=== PATIENT | male | born 1970 | race Caucasian/White ===

== ENCOUNTER 2018-05-03 07:55 | Emergency (ER) | payer OTHER ==
[~2018-05-03] VITALS: Ht 177.8 cm; Wt 173.3 kg
[~2018-05-03 07:55] MED LIST: TRAM50TA2 PO
[2018-05-03] MEDS ORDERED: KETOROLAC 30 MG/ML VIAL IVP ONE (08:15)
--- NOTE | 2018-05-03 08:19 | ED GU-Male ---
General Chief Complaint: -Male Stated Complaint: TESTICLE PAIN Source: patient, spouse Exam Limitations: no limitations History of Present Illness Date Seen by Provider: May 03, 2018 Time Seen by Provider: 08:04 Initial Comments Patient presents to the ER by private conveyance with his significant other and a chief complaint that at 1:00 this morning he surgeon experience some left general testicular pain like somebody just kicked him in the testicle. He denies any trauma. He says this happens occasionally and usually goes away after little bit to seconds to a minute. However tonight the pain did not go away and is still persisting so he has called in from work and came to the ER to be checked out. He has had a vasectomy but no other surgeries on his abdomen or pelvis. He is not having any discharge painful urination, fevers, chills, discoloration or swelling in the scrotum. He has a history of hiatal hernia but no inguinal hernias. He is having no problems passing bowels. He has a little bit of nausea when the pain is at its worst. Made worse by Valsalva maneuver. Patient is in the process of smoking cessation and does not smoke every day. He has no significant known medical problems says his blood pressure is normal and does not take any medicines routinely. He is being treated with some pain medicine for dental pain presently. Allergies and Home Medications Allergies Coded Allergies: No Known Allergies (Verified Allergy, Unknown, 05/30/06) Home Medications Tramadol Hcl 50 Mg Tablet, 50 MG PO Q4H PRN Prescribed by: MARCIN ROTHMAN on 07/22/13 2215 Patient Home Medication List Home Medication List Reviewed: Yes Review of Systems Constitutional: No chills, No diaphoresis, No fever EENTM: No ear discharge, No ear pain Respiratory: No cough, No short of breath Cardiovascular: No chest pain, No palpitations Gastrointestinal: No abdominal pain, No constipation Genitourinary: denies burning, denies discharge, denies dysuria, denies frequency, denies incontinence Musculoskeletal: No joint swelling, No muscle pain Past Ubvpxgs-Uapswo-Vdailo Hx Patient Social History Alcohol Use: Denies Use Recreational Drug Use: No Smoking Status: Current Someday Smoker Recent Foreign Travel: No Contact w/Someone Who Travel: No Past Medical History Surgeries: Yes Gallbladder, Orthopedic, Vasectomy Respiratory: No Cardiac: No Neurological: No Reproductive Disorders: No Sexually Transmitted Disease: No HIV/AIDS: No Gastrointestinal: No Musculoskeletal: No Endocrine: No Cancer: No Psychosocial: No Integumentary: No Blood Disorders: No Adverse Reaction/Blood Tranf: No Family Medical History No Pertinent Family Hx Physical Exam Vital Signs Vital Signs - First Documented 05/03/18 07:59 Temp 96.0 Pulse 81 Resp 18 B/P (MAP) 117/83 (94) Pulse Ox 98 O2 Delivery Room Air Capillary Refill : Height, Weight, BMI Height: ', " Weight: 310lbs oz, 140.647002pd Method:Stated ,BMI General Appearance: no apparent distress, obese HEENT: PERRL/EOMI, pharynx normal Neck: non-tender, full range of motion, supple, normal inspection Cardiovascular: normal peripheral pulses, regular rate, rhythm Respiratory: no respiratory distress, no accessory muscle use Gastrointestinal: non tender, soft Male: normal genitalia, no hernia; No erythema; inguinal tenderness (left side) ; No testicular tenderness; other (no palpable mass) Genital/Rectal: normal genital exam, other (cremasteric reflex present. No Pineda clap or deformity.) Extremities: normal range of motion, normal capillary refill Neurologic/Psychiatric: alert, oriented x 3 Progress/Results/Core Measures Suspected Sepsis SIRS Temperature: Pulse: Respiratory Rate: Laboratory Tests 05/03/18 08:27: White Blood Count 7.9 Blood Pressure / Mean: Laboratory Tests 05/03/18 08:27: Platelet Count 255 05/03/18 08:51: Creatinine 0.95, Total Bilirubin 0.7 Results/Orders Lab Results Laboratory Tests Test 05/03/18 08:27 05/03/18 08:51 05/03/18 09:44 Range/Units White Blood Count 7.9 4.3-11.0 10^3/uL Red Blood Count 4.48 4.35-5.85 10^6/uL Hemoglobin 14.2 13.3-17.7 G/DL Hematocrit 42 40-54 % Mean Corpuscular Volume 93 80-99 FL Mean Corpuscular Hemoglobin 32 25-34 PG Mean Corpuscular Hemoglobin Concent 34 32-36 G/DL Red Cell Distribution Width 14.4 10.0-14.5 % Platelet Count 255 130-400 10^3/uL Mean Platelet Volume 10.7 H 7.4-10.4 FL Neutrophils (%) (Auto) 65 42-75 % Lymphocytes (%) (Auto) 23 12-44 % Monocytes (%) (Auto) 7 0-12 % Eosinophils (%) (Auto) 5 0-10 % Basophils (%) (Auto) 1 0-10 % Neutrophils # (Auto) 5.1 1.8-7.8 X 10^3 Lymphocytes # (Auto) 1.8 1.0-4.0 X 10^3 Monocytes # (Auto) 0.6 0.0-1.0 X 10^3 Eosinophils # (Auto) 0.4 H 0.0-0.3 10^3/uL Basophils # (Auto) 0.1 0.0-0.1 10^3/uL Sodium Level 138 135-145 MMOL/L Potassium Level 3.9 3.6-5.0 MMOL/L Chloride Level 105 98-107 MMOL/L Carbon Dioxide Level 22 21-32 MMOL/L Anion Gap 11 5-14 MMOL/L Blood Urea Nitrogen 9 7-18 MG/DL Creatinine 0.95 0.60-1.30 MG/DL Estimat Glomerular Filtration Rate > 60 BUN/Creatinine Ratio 9 Glucose Level 99 70-105 MG/DL Calcium Level 9.0 8.5-10.1 MG/DL Total Bilirubin 0.7 0.1-1.0 MG/DL Aspartate Amino Transf (AST/SGOT) 17 5-34 U/L Alanine Aminotransferase (ALT/SGPT) 14 0-55 U/L Alkaline Phosphatase 124 40-136 U/L Total Protein 7.1 6.4-8.2 GM/DL Albumin 3.9 3.2-4.5 GM/DL Urine Color YELLOW Urine Clarity VERY CLOUDY H Urine pH 6 5-9 Urine Specific [place] 1.020 1.016-1.022 Urine Protein 2+ H NEGATIVE Urine Glucose (UA) NEGATIVE NEGATIVE Urine Ketones 1+ H NEGATIVE Urine Nitrite NEGATIVE NEGATIVE Urine Bilirubin NEGATIVE NEGATIVE Urine Urobilinogen 1 NORMAL MG/DL Urine Leukocyte Esterase 1+ H NEGATIVE Urine RBC (Auto) NEGATIVE NEGATIVE Urine RBC NONE /HPF Urine WBC RARE /HPF Urine Squamous Epithelial Cells RARE /HPF Urine Crystals NONE /LPF Urine Bacteria NEGATIVE /HPF Urine Casts NONE /LPF Urine Mucus NEGATIVE /LPF Urine Culture Indicated NO My Orders Orders - SUKI GALLAGHER Cbc With Automated Diff (05/03/18 08:07) Comprehensive Metabolic Panel (05/03/18 08:07) Ua Culture If Indicated (05/03/18 08:07) Saline Lock/Iv-Start (05/03/18 08:07) Us Scrotum (Testicle) [id number] (05/03/18 08:07) Ketorolac Injection (Toradol Injection) (05/03/18 08:15) Ondansetron Injection (Zofran Injectio (05/03/18 08:30) Medications Given in ED Current Medications Medications Dose Ordered Sig/Meggan Route Start Time Stop Time Status Last Admin Dose Admin Ketorolac Tromethamine 30 mg ONCE ONCE IVP 05/03/18 08:15 05/03/18 08:16 DC 05/03/18 08:34 30 MG Ondansetron HCl 4 mg ONCE ONCE IVP 05/03/18 08:30 05/03/18 08:31 DC 05/03/18 08:33 4 MG Vital Signs/I&O 05/03/18 07:59 Temp 96.0 Pulse 81 Resp 18 B/P (MAP) 117/83 (94) Pulse Ox 98 O2 Delivery Room Air Capillary Refill : Progress Note : Time: 08:14 Progress Note We will start an IV and give him some Zofran and ketorolac to start; then obtain an ultrasound of the scrotum. Urinalysis. Concern for testicle torsion versus inguinal hernia that couldn't be palpated versus epididymo orchitis. Diagnostic Imaging Diagonstic Imaging: Ultrasound Plain Films/CT/US/NM/MRI: other (scrotum) Comments Slight fullness in the left epididymis but no evidence of torsion. Good blood flow to the testicles. No cysts or tumor seen. [facility] [place], [place] NAME: NEVILLE RIVERS [facility] REC#: [id number] PT STATUS: REG ER : 1970 PHYSICIAN: SKUI GALLAGHER MD ADMIT DATE: 05/03/18/ER Draft Date of Exam:05/03/18 US SCROTUM (Testicle) [id number] INDICATION: Left scrotal pain EXAMINATION: Scrotal sonogram dated 05/03/2018 FINDINGS: Grayscale and color Doppler ultrasound imaging of the scrotum. Right testicle is 5.2 x 2.7 x 3.6 cm. The left measures 4.7 x 3 x 3.2 cm. Bilateral symmetric blood flow seen to the testes. Small bilateral hydroceles noted. The left epididymis is more prominent than the right but no increased vascularity is seen. IMPRESSION: 1. Slightly prominent left epididymis compared to the right. Findings nonspecific but could be due to very early epididymitis; correlate with symptoms. 2. Small bilateral hydroceles. 3. Normal appearance of both testes with no evidence for torsion. Dictated on workstation # [id number] Dict: 05/03/18 0931 Trans: 05/03/18 0948 BETTYE [id number] Interpreted by: JOVANNI MORAN MD Electronically signed by: Reviewed: Reviewed by Me Departure Impression Primary Impression: Epididymo-orchitis, acute Disposition: 01 HOME, SELF-CARE Condition: Stable Departure-Patient Inst. Decision time for Depature: 10:12 Referrals: NO,LOCAL PHYSICIAN (PCP/Family) Primary Care Physician Patient Instructions: Epididymitis (DC) Add. Discharge Instructions: Drink plenty of fluids. operations support manager the Levaquin from the pharmacy and take one tablet daily for the total of 10 days. Use Tylenol 1000 mg every 8 hours in addition to ibuprofen 800 mg every 8 hours for your pain. All discharge instructions reviewed with patient and/or family. Voiced understanding. Scripts Ondansetron (Ondansetron Odt) 4 Mg Tab.rapdis 4 MG PO Q6H PRN for NAUSEA/VOMITING, #8 TAB 0 Refills Prov: SUKI GALLAGHER 05/03/18 Hydrocodone Bit/Acetaminophen (Hydrocodone/Acetaminophen 5/325mg Tablet) 1 Tab Tab 1-2 EACH PO Q6H PRN for BREAKTHROUGH PAIN, #15 TAB 0 Refills Prov: SUKI GALLAGHER 05/03/18 Levofloxacin (Levaquin) 500 Mg Tablet 500 MG PO DAILY for 10 Days, #10 TAB 0 Refills Prov: SUKI GALLAGHER 05/03/18 Work/School Note: Work Release Form Date Seen in the Emergency Department: May 03, 2018 Return to Work: May 04, 2018 Restrictions: No Restrictions SUKI GALLAGHER May 03, 2018 08:19
[2018-05-03] MEDS ORDERED: ONDANSETRON 4 MG/2 ML (SDV) Z0FRAN IVP ONE ×2 (08:30→10:30)
[2018-05-03 08:39] LABS: BASOPHILS # (AUTO) 0.1 10^3/uL (0.0-0.1); BASOPHILS % (AUTO) 1 % (0-10); EOSINOPHILS # (AUTO) 0.4 10^3/uL (0.0-0.3); EOSINOPHILS % (AUTO) 5 % (0-10); HEMATOCRIT 42 % (40-54); HEMOGLOBIN 14.2 G/DL (13.3-17.7); LYMPHOCYTES # (AUTO) 1.8 X 10^3 (1.0-4.0); LYMPHOCYTES % (AUTO) 23 % (12-44); MEAN CORPUSCULAR HEMOGLOBIN 32 PG (25-34); MEAN CORPUSCULAR HGB CONC 34 G/DL (32-36); MEAN CORPUSCULAR VOLUME 93 FL (80-99); MEAN PLATELET VOLUME 10.7 FL (7.4-10.4); MONOCYTES # (AUTO) 0.6 X 10^3 (0.0-1.0); MONOCYTES % (AUTO) 7 % (0-12); NEUTROPHILS # (AUTO) 5.1 X 10^3 (1.8-7.8); NEUTROPHILS % (AUTO) 65 % (42-75); PLATELET COUNT 255 10^3/uL (130-400); RED BLOOD COUNT 4.48 10^6/uL (4.35-5.85); RED CELL DISTRIBUTION WIDTH 14.4 % (10.0-14.5); WHITE BLOOD COUNT 7.9 10^3/uL (4.3-11.0)
[2018-05-03 09:18] LABS: ALANINE AMINOTRANSFERASE 14 U/L (0-55); ALBUMIN 3.9 GM/DL (3.2-4.5); ALKALINE PHOSPHATASE 124 U/L (40-136); BILIRUBIN,TOTAL 0.7 MG/DL (0.1-1.0); BUN/CREATININE RATIO 9; CARBON DIOXIDE 22 MMOL/L (21-32); CHLORIDE 105 MMOL/L (98-107); CREATININE SERUM 0.95 MG/DL (0.60-1.30); GFR ESTIMATED > 60; GLUCOSE 99 MG/DL (70-105); POTASSIUM 3.9 MMOL/L (3.6-5.0); SODIUM 138 MMOL/L (135-145); TOTAL PROTEIN 7.1 GM/DL (6.4-8.2)
--- NOTE | 2018-05-03 09:49 | Diagnostic Imaging Report ---
INDICATION: Left scrotal pain EXAMINATION: Scrotal sonogram dated 05/03/2018 FINDINGS: Grayscale and color Doppler ultrasound imaging of the scrotum. Right testicle is 5.2 x 2.7 x 3.6 cm. The left measures 4.7 x 3 x 3.2 cm. Bilateral symmetric blood flow seen to the testes. Small bilateral hydroceles noted. The left epididymis is more prominent than the right but no increased vascularity is seen. IMPRESSION: 1. Slightly prominent left epididymis compared to the right. Findings nonspecific but could be due to very early epididymitis; correlate with symptoms. 2. Small bilateral hydroceles. 3. Normal appearance of both testes with no evidence for torsion. Dictated by: Dictated on workstation # [id number]
[2018-05-03 09:55] LABS: BILIRUBIN,URINE NEGATIVE (NEGATIVE); CLARITY,URINE VERY CLOUDY; COLOR,URINE YELLOW; GLUCOSE, URINE (UA) NEGATIVE (NEGATIVE); KETONES,URINE 1+ (NEGATIVE); LEUKOCYTE ESTERASE ,URINE 1+ (NEGATIVE); NITRITE,URINE NEGATIVE (NEGATIVE); PH,URINE 6 (5-9); PROTEIN,URINE 2+ (NEGATIVE); UROBILINOGEN,URINE 1 MG/DL (NORMAL)
[2018-05-03 10:06] LABS: BACTERIA,URINE NEGATIVE /HPF; SQUAMOUS EPITHELIAL CELL,UR RARE /HPF; WBC,URINE RARE /HPF
[2018-05-03] MEDS ORDERED: ACHD5005 PO (10:17)
[2018-05-03] MEDS ORDERED: ONDA4TAB11 PO (10:17)
[2018-05-03] MEDS ORDERED: LEVO500T2 PO (10:17)
[2018-05-03 10:27] VITALS: BP 150/100
== END 2018-05-03 10:34 | disposition home or self-care (01) ==
LOC: EDUNIT# 07:55 → ER 07:58
DX: N45.3 Epididymo-orchitis (principal); F17.200 Nicotine dependence, unspecified, uncomplicated; Z98.52 Vasectomy status
CPT/HCPCS: 36415; 76870; 80053; 81000; 85025; 87491; 87591; 96374; 96375; 96376

== ENCOUNTER → 2020-06-28 | Emergency (ER) | payer OTHER ==
[~2020-06-28] VITALS: Ht 177 cm; Wt 177.0 kg
[~2020-06-28] MED LIST changes: +ACHD5005 PO; +LEVO500T2 PO; +ONDA4TAB11 PO
[2020-06-28 12:05] LABS: BILIRUBIN,URINE NEGATIVE (NEGATIVE); CLARITY,URINE CLEAR; COLOR,URINE YELLOW; GLUCOSE, URINE (UA) NEGATIVE (NEGATIVE); KETONES,URINE NEGATIVE (NEGATIVE); LEUKOCYTE ESTERASE ,URINE NEGATIVE (NEGATIVE); NITRITE,URINE NEGATIVE (NEGATIVE); PROTEIN,URINE NEGATIVE (NEGATIVE)
[2020-06-28 12:20] LABS: BACTERIA,URINE NEGATIVE /HPF; SQUAMOUS EPITHELIAL CELL,UR RARE /HPF; WBC,URINE RARE /HPF
--- NOTE | 2020-06-28 12:51 | Diagnostic Imaging Report ---
INDICATION: Back pain. No history of trauma. FINDINGS: Two views. Lumbosacral spine shows good alignment. Body height is well-maintained. Disc spaces are well-preserved. Mild hypertrophic lipping of the endplates noted. Facets show good alignment with moderate degenerative facet disease. SI joints are symmetric with mild sclerosis. Pedicles appear intact. IMPRESSION: Moderate degenerative changes noted to lower lumbosacral spine especially along the facets. Dictated by: Dictated on workstation # [id number]
[2020-06-28 13:00] VITALS: BP 124/90
--- NOTE | 2020-06-28 13:00 | ED Back Pain ---
General Chief Complaint: Back Problems Stated Complaint: LOWER BACK PAIN Nursing Triage Note: pt presents to ed with complaints of lower back pain x 2 weeks. denies any known injury or urinary s/s. pt reports pain has been intermittent and worse with activity. Nursing Sepsis Screen: No Definite Risk History of Present Illness Date Seen by Provider: Jun 28, 2020 Time Seen by Provider: 11:50 Initial Comments 49-year-old obese male presents for low back pain and some present for approximately 2 weeks. No pain radiating into the legs, no bowel or bladder incontinence or retention. Has not been taking medication regularly for the pain, he did take Aleve 4 tablets this morning. No history of previous back problems or surgeries. Location: Lumbar Spine, Paraspinous Muscles Timing/Duration: 1 Week, Intermittent Severity: Mild Pain/Injury Location: Back Associated Symptoms: muscle spasms; No fever, No weakness, No numbness in legs/feet, No tingling in legs/feet, No sensory/motor loss; lower back pain; No loss of bladder control, No loss of bowel control Allergies and Home Medications Allergies Coded Allergies: No Known Allergies (Verified Allergy, Unknown, 05/30/06) Home Medications Hydrocodone Bit/Acetaminophen 1 Tab Tab, 1-2 EACH PO Q6H PRN for BREAKTHROUGH PAIN Prescribed by: SUKI GALLAGHER on 05/03/18 1017 Levofloxacin 500 Mg Tablet, 500 MG PO DAILY Prescribed by: SUKI GALLAGHER on 05/03/18 1017 Ondansetron 4 Mg Tab.rapdis, 4 MG PO Q6H PRN for NAUSEA/VOMITING Prescribed by: SUKI GALLAGHER on 05/03/18 1017 Tramadol Hcl 50 Mg Tablet, 50 MG PO Q4H PRN Prescribed by: MARCIN ROTHMAN on 07/22/13 2213 Patient Home Medication List Home Medication List Reviewed: Yes Review of Systems Constitutional: no symptoms reported, see HPI Musculoskeletal: see HPI, back pain, muscle pain, muscle cramps All Other Systems Reviewed Negative Unless Noted: Yes Past Aulxute-Hasjsh-Cbxvyg Hx Past Med/Social Hx: Reviewed Nursing Past Med/Soc Hx Patient Social History Alcohol Use: Rarely Uses Recreational Drug Use: No Smoking Status: Current Everyday Smoker Type Used: Cigarettes Recent Foreign Travel: No Contact w/Someone Who Travel: No Recent Infectious Disease Expo: No Physical Abuse: No Sexual Abuse: No Mistreated: No Fear: No Past Medical History Surgeries: Yes Gallbladder, Orthopedic, Vasectomy Respiratory: No Cardiac: No Neurological: No Reproductive Disorders: No Sexually Transmitted Disease: No HIV/AIDS: No Gastrointestinal: No Musculoskeletal: No Endocrine: No Cancer: No Psychosocial: No Integumentary: No Blood Disorders: No Adverse Reaction/Blood Tranf: No Family Medical History No Pertinent Family Hx Physical Exam Vital Signs Vital Signs - First Documented 06/28/20 11:49 Temp 36.5 Pulse 98 Resp 18 B/P (MAP) 125/84 (98) Pulse Ox 97 Capillary Refill : Less Than 3 Seconds Height, Weight, BMI Height: 5'10.00" Weight: 382lbs. oz. 173.178927xg; 56.00 BMI Method:Stated General Appearance: No Apparent Distress, WD/WN Neck: Full Range of Motion, Normal Inspection, Non Tender, Supple Cardiovascular: Regular Rate, Rhythm, No Edema, No Murmur, Normal Peripheral Pulses Respiratory: Chest Non Tender, Lungs Clear, Normal Breath Sounds Back: Normal Inspection, Decreased Range of Motion (secondary to pain), Muscle Spasm, Other (Power V/V L4-S1. Ambulates with an antalgic but steady gait) Neurologic/Psychiatric: Alert, Oriented x3, No Motor/Sensory Deficits, Normal Mood/Affect Skin: Normal Color, Warm/Dry Progress/Results/Core Measures Results/Orders Lab Results Laboratory Tests Test 06/28/20 11:42 Range/Units Urine Color YELLOW Urine Clarity CLEAR Urine pH 6.0 5-9 Urine Specific [place] <=1.005 1.016-1.022 Urine Protein NEGATIVE NEGATIVE Urine Glucose (UA) NEGATIVE NEGATIVE Urine Ketones NEGATIVE NEGATIVE Urine Nitrite NEGATIVE NEGATIVE Urine Bilirubin NEGATIVE NEGATIVE Urine Urobilinogen 0.2 < = 1.0 MG/DL Urine Leukocyte Esterase NEGATIVE NEGATIVE Urine RBC (Auto) NEGATIVE NEGATIVE Urine RBC NONE /HPF Urine WBC RARE /HPF Urine Squamous Epithelial Cells RARE /HPF Urine Crystals NONE /LPF Urine Bacteria NEGATIVE /HPF Urine Casts NONE /LPF Urine Mucus NEGATIVE /LPF Urine Culture Indicated NO My Orders Orders - JANEY JOHN Ua Culture If Indicated (06/28/20 11:35) Lumbar Spine - 2-3 Views (06/28/20 12:06) Tramadol Tablet (Ultram Tablet) (06/28/20 12:15) Medications Given in ED Current Medications Medications Dose Ordered Sig/Meggan Route Start Time Stop Time Status Last Admin Dose Admin Tramadol HCl 50 mg ONCE ONCE PO 06/28/20 12:15 06/28/20 12:16 DC 06/28/20 12:40 50 MG Vital Signs/I&O 06/28/20 06/28/20 11:49 13:00 Temp 36.5 Pulse 98 70 Resp 18 20 B/P (MAP) 125/84 (98) 124/90 Pulse Ox 97 98 Blood Pressure Mean: 98 Diagnostic Imaging Diagonstic Imaging: Xray Plain Films/CT/US/NM/MRI: other (lumbar spine) Comments NAME: NEVILLE RIVERS [facility] REC#: [id number] PT STATUS: REG ER : 1970 PHYSICIAN: JANEY JOHN ADMIT DATE: 06/28/20/ER Draft Date of Exam:06/28/20 LUMBAR SPINE - 2-3 VIEWS INDICATION: Back pain. No history of trauma. FINDINGS: Two views. Lumbosacral spine shows good alignment. Body height is well-maintained. Disc spaces are well-preserved. Mild hypertrophic lipping of the endplates noted. Facets show good alignment with moderate degenerative facet disease. SI joints are symmetric with mild sclerosis. Pedicles appear intact. IMPRESSION: Moderate degenerative changes noted to lower lumbosacral spine especially along the facets. Dictated on workstation # [id number] Dict: 06/28/20 1246 Trans: 06/28/[address] [facility] [id number] Interpreted by: SAPPHIRE AGEE MD Electronically signed by: Reviewed: Reviewed by Me Departure Impression Primary Impression: Lumbosacral strain Qualified Codes: S39.012A - Strain of muscle, fascia and tendon of lower back, initial encounter Additional Impression: Acute low back pain Qualified Codes: M54.5 - Low back pain Disposition: 01 HOME, SELF-CARE Condition: Improved Departure-Patient Inst. Decision time for Depature: 12:40 Referrals: NO,LOCAL PHYSICIAN (PCP/Family) Primary Care Physician Patient Instructions: Lumbar Muscle Strain (DC), Low Back Pain (DC) Add. Discharge Instructions: Alternate between heat and ice to your low back. Take Aleve 2 tablets twice daily with food. [facility] are not improving or worsen, an MRI may be recommended at that point. You may try Biofreeze or icy hot to your back. Limit twisting and turning activities or any heavy lifting. Return to the emergency department for new, urgent health care needs. All discharge instructions reviewed with patient and/or family. Voiced understanding. JANEY JOHN Jun 28, 2020 13:00
== END ==
LOC: EDUNIT# 11:32 → ER 11:33
DX: S39.012A Strain of muscle, fascia and tendon of lower back, initial encounter (principal); E66.9 Obesity, unspecified; F17.210 Nicotine dependence, cigarettes, uncomplicated; Z68.43 Body mass index [BMI] 50.0-59.9, adult; X58.XXXA Exposure to other specified factors, initial encounter
CPT/HCPCS: 72100; 81000

== ENCOUNTER 2022-03-18 12:15 | Emergency (ER) | payer OTHER ==
[~2022-03-18] VITALS: Ht 177 cm; Wt 172.3 kg
[2022-03-18 12:49] LABS: BASOPHILS # (AUTO) 0.1 10^3/uL (0.0-0.1); BASOPHILS % (AUTO) 1 % (0-10); EOSINOPHILS # (AUTO) 0.3 10^3/uL (0.0-0.3); EOSINOPHILS % (AUTO) 3 % (0-10); HEMATOCRIT 47 % (40-54); HEMOGLOBIN 15.6 g/dL (13.3-17.7); LYMPHOCYTES # (AUTO) 1.9 10^3/uL (1.0-4.0); LYMPHOCYTES % (AUTO) 21 % (12-44); MEAN CORPUSCULAR HEMOGLOBIN 31 pg (25-34); MEAN CORPUSCULAR HGB CONC 33 g/dL (32-36); MEAN CORPUSCULAR VOLUME 93 fL (80-99); MEAN PLATELET VOLUME 10.5 fL (9.0-12.2); MONOCYTES # (AUTO) 0.6 10^3/uL (0.0-1.0); MONOCYTES % (AUTO) 6 % (0-12); NEUTROPHILS # (AUTO) 6.3 10^3/uL (1.8-7.8); NEUTROPHILS % (AUTO) 69 % (42-75); PLATELET COUNT 277 10^3/uL (130-400); WHITE BLOOD COUNT 9.1 10^3/uL (4.3-11.0)
--- NOTE | 2022-03-18 12:53 | Diagnostic Imaging Report ---
INDICATION: Altered mental status. Portable chest 12:51 PM Heart size and pulmonary vascularity are normal. Lungs are clear. There are no effusions or pneumothoraces. IMPRESSION: No acute abnormalities in the chest. Dictated by: Dictated on workstation # [id number]
[2022-03-18 12:56] LABS: CHLORIDE 104 MMOL/L (98-107); POTASSIUM 4.7 MMOL/L (3.6-5.0); SODIUM 138 MMOL/L (135-145)
[2022-03-18 12:57] LABS: CALCIUM 9.5 MG/DL (8.5-10.1); FIBRIN DEGRADATION PRODUCTS 0.4 UG/ML (0.00-0.49); PROTHROMBIN TIME PATIENT 13.1 SEC (12.2-14.7)
[2022-03-18 12:58] LABS: GLUCOSE 99 MG/DL (70-105); TOTAL PROTEIN 7.4 GM/DL (6.4-8.2)
[2022-03-18 12:59] LABS: CARBON DIOXIDE 21 MMOL/L (21-32)
[2022-03-18 13:00] LABS: BILIRUBIN,TOTAL 0.6 MG/DL (0.1-1.0)
[2022-03-18 13:01] LABS: ALKALINE PHOSPHATASE 117 U/L (40-136)
[2022-03-18 13:02] LABS: CREATININE SERUM 1.17 MG/DL (0.60-1.30); GFR ESTIMATED 75
[2022-03-18 13:03] LABS: BUN/CREATININE RATIO 14
--- NOTE | 2022-03-18 13:03 | Diagnostic Imaging Report ---
INDICATION: Headache and dizziness and tingling in hands. TECHNIQUE: Multiple contiguous axial images were obtained through the brain without the use of intravenous contrast. Auto Exposure Controls were utilized during the CT exam to meet ALARA standards for radiation dose reduction. COMPARISON: There is no prior study for comparison. FINDINGS: There are no extra-axial fluid collections. No intracranial hemorrhage. No intracranial mass or mass effect. No midline shift. The ventricles are normal in size and position. There were no focal parenchymal abnormalities in the brain. Calvarial windows are unremarkable. IMPRESSION: Negative noncontrast brain CT. Dictated by: Dictated on workstation # [id number]
[2022-03-18 13:05] LABS: ALANINE AMINOTRANSFERASE 15 U/L (0-55)
[2022-03-18 13:20] LABS: BILIRUBIN,URINE NEGATIVE (NEGATIVE); CLARITY,URINE CLEAR; COLOR,URINE YELLOW; GLUCOSE, URINE (UA) NEGATIVE (NEGATIVE); KETONES,URINE NEGATIVE (NEGATIVE); LEUKOCYTE ESTERASE ,URINE NEGATIVE (NEGATIVE); NITRITE,URINE NEGATIVE (NEGATIVE); PROTEIN,URINE NEGATIVE (NEGATIVE)
[2022-03-18] MEDS ORDERED: CATHETER FLUSH 10 ML SYR IV PRN (13:30)
[2022-03-18] MEDS ORDERED: NS 100 ML (IVPB) BAG IV ONE (13:30)
[2022-03-18] MEDS ORDERED: HOLD METFORMIN - RECEIVED CONTRAST 20 ML VIAL IV SCH (13:30)
[2022-03-18] MEDS ORDERED: IOHEXOL 350 MG/ML 100 ML (OMNIPAQUE 350) VIAL IV ONE (13:30)
[2022-03-18 13:46] LABS: BACTERIA,URINE NEGATIVE /HPF; SQUAMOUS EPITHELIAL CELL,UR RARE /HPF
--- NOTE | 2022-03-18 14:21 | ED Neurological Problem ---
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 Source: patient Exam Limitations: no limitations History of Present Illness Date Seen by Provider: March 18, 2022 Allergies and Home Medications Allergies Coded Allergies: NKANo Known Allergies (Verified Allergy, Unknown, 05/30/06) Patient Home Medication List Hydrocodone Bit/Acetaminophen (Lortab 5 Mg Tablet) 1 Tab Tab, 1-2 EACH PO Q6H PRN for BREAKTHROUGH PAIN Prescribed by: SUKI GALLAGHER on 05/03/18 1017 Levofloxacin (Levaquin) 500 Mg Tablet, 500 MG PO DAILY Prescribed by: SUKI GALLAGHER on 05/03/18 1017 Ondansetron (Ondansetron Odt) 4 Mg Tab.rapdis, 4 MG PO Q6H PRN for NAUSEA/VOMITING Prescribed by: SUKI GALLAGHER on 05/03/18 1017 Tramadol Hcl (Tramadol Hcl) 50 Mg Tablet, 50 MG PO Q4H PRN Prescribed by: MARCIN ROTHMAN on 07/22/13 1795 Past Qarioyg-Uiznsg-Cacmot Hx Patient Social History Tobacco Use?: Yes Smoking Status: Current Everyday Smoker Substance use?: No Alcohol Use?: No Pt feels they are or have been: No Immunizations Up To Date First/Initial COVID19 Vaccinat: 10/15/21 Second COVID19 Vaccination Joey: 11/05/21 COVID19 Vaccine 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: Healthy Humans Past Medical History Surgeries: Yes Gallbladder, Orthopedic, Vasectomy Respiratory: No Cardiac: No Neurological: No Reproductive Disorders: No Sexually Transmitted Disease: No HIV/AIDS: No Gastrointestinal: No Musculoskeletal: No Endocrine: No Cancer: No Psychosocial: No Integumentary: No Blood Disorders: No Adverse Reaction/Blood Tranf: No Family Medical History No Pertinent Family Hx Physical Exam Vital Signs Vital Signs - First Documented 03/18/22 12:18 Temp 35.7 Pulse 74 Resp 20 B/P (MAP) 127/95 (106) Pulse Ox 98 Capillary Refill : Less Than 3 Seconds Height, Weight, BMI Height: 5'10.00" Weight: 382lbs. oz. [id number]; 54.00 BMI Method:Stated Stroke Onset of Symptoms Date of Onset of Symptoms: March 18, 2022 Time of Symptom Onset: 10:30 Onset of Symptoms: Yes NIH Stroke Scale Assessment Select: Initial Level of Consciousness: 0=Alert (0), Level of Consciousness- Questions: 0=Answers both month/age (0), LOC Commands: 0=Performs both tasks (0), Visual Hernandez: 1=Partial hemianopia (1), Facial Movement (Facial Paresis): 0=Normal symmetrical mnt (0), Motor Function-Arms Right: 0=No drift (0), Motor Function-Arms Left: 0=No drift (0), Motor Function-Legs Right: 0=No drift (0), Motor Function-Legs Left: 0=No drift (0), Limb Ataxia: 0=Absent (0), Sensory: 0=Normal:no loss (0), Best Language: 1=Mild to moderat aphasia (1), Dysarthria: 0=Normal (0), Extinction & Inattention: 0=No abnormality (0), Total: 2 Progress/Results/Core Measures Results/Orders Lab Results Laboratory Tests Test 03/18/22 12:24 03/18/22 12:46 03/18/22 13:14 Range/Units White Blood Count 9.1 4.3-11.0 10^3/uL Red Blood Count 5.06 4.30-5.52 10^6/uL Hemoglobin 15.6 13.3-17.7 g/dL Hematocrit 47 40-54 % Mean Corpuscular Volume 93 80-99 fL Mean Corpuscular Hemoglobin 31 25-34 pg Mean Corpuscular Hemoglobin Concent 33 32-36 g/dL Red Cell Distribution Width 13.6 10.0-14.5 % Platelet Count 277 130-400 10^3/uL Mean Platelet Volume 10.5 9.0-12.2 fL Immature Granulocyte % (Auto) 0 % Neutrophils (%) (Auto) 69 42-75 % Lymphocytes (%) (Auto) 21 12-44 % Monocytes (%) (Auto) 6 0-12 % Eosinophils (%) (Auto) 3 0-10 % Basophils (%) (Auto) 1 0-10 % Neutrophils # (Auto) 6.3 1.8-7.8 10^3/uL Lymphocytes # (Auto) 1.9 1.0-4.0 10^3/uL Monocytes # (Auto) 0.6 0.0-1.0 10^3/uL Eosinophils # (Auto) 0.3 0.0-0.3 10^3/uL Basophils # (Auto) 0.1 0.0-0.1 10^3/uL Immature Granulocyte # (Auto) 0.0 0.0-0.1 10^3/uL Erythrocyte Sedimentation Rate 15 0-30 MM/HR Prothrombin Time 13.1 12.2-14.7 SEC INR Comment 1.0 0.8-1.4 Activated Partial Thromboplast Time 32 24-35 SEC D-Dimer 0.40 0.00-0.49 UG/ML Sodium Level 138 135-145 MMOL/L Potassium Level 4.7 3.6-5.0 MMOL/L Chloride Level 104 98-107 MMOL/L Carbon Dioxide Level 21 21-32 MMOL/L Anion Gap 13 5-14 MMOL/L Blood Urea Nitrogen 16 7-18 MG/DL Creatinine 1.17 0.60-1.30 MG/DL Estimat Glomerular Filtration Rate 75 BUN/Creatinine Ratio 14 Glucose Level 99 70-105 MG/DL Calcium Level 9.5 8.5-10.1 MG/DL Corrected Calcium 9.5 8.5-10.1 MG/DL Total Bilirubin 0.6 0.1-1.0 MG/DL Aspartate Amino Transf (AST/SGOT) 16 5-34 U/L Alanine Aminotransferase (ALT/SGPT) 15 0-55 U/L Alkaline Phosphatase 117 40-136 U/L Troponin I < 0.028 <0.028 NG/ML C-Reactive Protein High Sensitivity 2.10 H 0.00-0.50 MG/DL Total Protein 7.4 6.4-8.2 GM/DL Albumin 4.0 3.2-4.5 GM/DL Glucometer 110 70-110 MG/DL Urine Color YELLOW Urine Clarity CLEAR Urine pH 6.0 5-9 Urine Specific [place] 1.015 L 1.016-1.022 Urine Protein NEGATIVE NEGATIVE Urine Glucose (UA) NEGATIVE NEGATIVE Urine Ketones NEGATIVE NEGATIVE Urine Nitrite NEGATIVE NEGATIVE Urine Bilirubin NEGATIVE NEGATIVE Urine Urobilinogen 0.2 < = 1.0 MG/DL Urine Leukocyte Esterase NEGATIVE NEGATIVE Urine RBC (Auto) NEGATIVE NEGATIVE Urine RBC NONE /HPF Urine WBC NONE /HPF Urine Squamous Epithelial Cells RARE /HPF Urine Crystals NONE /LPF Urine Bacteria NEGATIVE /HPF Urine Casts NONE /LPF Urine Mucus NEGATIVE /LPF Urine Culture Indicated NO My Orders Orders - CECILLE DEY APRN Cbc With Automated Diff (03/18/22 12:44) Protime With Inr (03/18/22 12:44) Partial Thromboplastin Time (03/18/22 12:44) Comprehensive Metabolic Panel (03/18/22 12:44) Fibrin Degradation Products (03/18/22 12:44) Troponin I [place] (03/18/22 12:44) Ua Culture If Indicated (03/18/22 12:44) Chest 1 View, Ap/Pa Only (03/18/22 12:44) Ekg Tracing (03/18/22 12:44) Nothing By Mouth (03/18/22 Lunch) Accucheck Stat ONCE (03/18/22 12:44) Ed Iv/Invasive Line Start (03/18/22 12:44) Vital Signs Stroke Patient Q15M (03/18/22 12:44) Ct Head Wo-R/O Stroke (03/18/22 12:44) O2 (03/18/22 12:44) Intake & Output 06,14,22 (03/18/22 12:44) Monitor-Rhythm Ecg Trace Only (03/18/22 12:44) Dysphagia Screening Tool Q10MX1 (03/18/22 12:44) Post Thrombolytic Adminstratio (03/18/22 12:44) Lipid Panel (03/19/22 06:00) Hs C Reactive Protein (03/18/22 13:20) Erythrocyte Sedimentation Rate (03/18/22 13:20) Ct Angio Head/Neck (03/18/22 13:20) Accucheck Stat ONCE (03/18/22 13:22) Ed Iv/Invasive Line Start (03/18/22 13:22) Ed Iv/Invasive Line Start (03/18/22 13:22) Vital Signs Stroke Patient Q15M (03/18/22 13:22) O2 (03/18/22 13:22) Intake & Output 06,14,22 (03/18/22 13:22) Dysphagia Screening Tool Q10MX1 (03/18/22 13:22) Post Thrombolytic Adminstratio (03/18/22 13:22) Iohexol Injection (Omnipaque 350 Mg/Ml 1 (03/18/22 13:30) Received Contrast (Hold Metformin- Contr (03/18/22 13:30) Sodium Chloride Flush (Catheter Flush Sy (03/18/22 13:30) Ns (Ivpb) (Sodium Chloride 0.9% Ivpb Bag (03/18/22 13:30) Aspirin Tablet (Aspirin Tablet) (03/18/22 15:15) Tetracaine 0.5% Ophth Rosanne Sdv (Tetracai (03/18/22 15:30) Medications Given in ED Current Medications Medications Dose Ordered Sig/Meggan Route Start Time Stop Time Status Last Admin Dose Admin Aspirin 325 mg ONCE ONCE PO 03/18/22 15:15 03/18/22 15:21 DC 03/18/22 15:30 325 MG Iohexol 75 ml ONCE ONCE IV 03/18/22 13:30 03/18/22 13:31 DC 03/18/22 13:40 75 ML Sodium Chloride 10 ml NEEDED PRN IV 03/18/22 13:30 03/18/22 13:40 10 ML Sodium Chloride 100 ml ONCE ONCE IV 03/18/22 13:30 03/18/22 13:31 DC 03/18/22 13:40 80 ML Tetracaine HCl 1 OR 2 DROPS INTO AFFEC... ONCE ONCE OP 03/18/22 15:30 03/18/22 15:31 DC 03/18/22 15:31 4 ML Vital Signs/I&O 03/18/22 12:18 Temp 35.7 Pulse 74 Resp 20 B/P (MAP) 127/95 (106) Pulse Ox 98 Blood Pressure Mean: 106 FSBG Bedside Testing Finger Stick Blood Glucose: 110 Departure Impression Primary Impression: TIA (transient ischemic attack) Disposition: HOME, SELF-CARE Condition: Improved Departure-Patient Inst. Decision time for Depature: 15:22 Referrals: NO,LOCAL PHYSICIAN (PCP/Family) Primary Care Physician Patient Instructions: Transient Ischemic Attack ED Add. Discharge Instructions: Plan: 1. You will need to start taking a baby aspirin daily. You have been given a full-strength aspirin today so you can start this tomorrow. 2. You need to follow-up with your primary care provider tomorrow so we can complete evaluation of your TIA work-up. Recommend following up for carotid artery duplex, hyperlipidemia. 3. Return immediately to the emergency department if you start experiencing symptoms again such as facial drooping, slurred speech, weakness, vision changes, any other new or concerning symptoms. 4. I would like to please call your funeral assistant to schedule close follow-up. If you do not have an eye doctor that she sees regularly we have local providers at [facility] who are excellent. You can call them at [phone]. 5. Return for any new, concerning, or worsening symptoms. All discharge instructions reviewed with patient and/or family. Voiced understanding. Work/School Note: Work Release Form Date Seen in the Emergency Department: March 18, 2022 Return to Work: March 20, 2022 Restrictions: No Restrictions CECILLE DEY RAILROAD SWITCHMAN March 18, 2022 14:21
--- NOTE | 2022-03-18 15:02 | Diagnostic Imaging Report ---
PROCEDURE: CT angiography of the head and CT angiography of the neck with and without contrast. TECHNIQUE: Contiguous noncontrast images were obtained from the skull base through the vertex. After intravenous contrast administration, helical CT angiography of the neck was performed. Source data was reformatted into 3D MIP projections. Delayed post contrast acquisition was also obtained. Auto Exposure Controls were utilized during the CT exam to meet ALARA standards for radiation dose reduction. INDICATION: Headache and dizziness with tingling in hands. COMPARISON: Noncontrast CT head of earlier same day. FINDINGS: Great vessels of the aortic arch are widely patent. There is no stenosis of the common carotid arteries on either side. No stenosis of the proximal internal carotid arteries per NASCET criteria. The cervical division of the internal carotid arteries are patent. Vertebral arteries are codominant and patent throughout the neck allowing for portions being suboptimally visualized due to streak artifact from patient's large body habitus at the level of the shoulders. No cervical lymphadenopathy. Airway is patent. No concerning abnormality in the cervical spine. Multifocal dental caries and periodontal disease. The bilateral distal internal carotid arteries are patent without terminal aneurysm. The M1 and M2 divisions of the middle cerebral arteries are patent. Anterior cerebral arteries are patent. No anterior communicating artery aneurysm. Basilar artery is widely patent without terminal aneurysm. The posterior cerebral arteries are patent. Dural venous sinuses are patent. IMPRESSION: 1. No intracranial large vessel occlusion or saccular aneurysm. 2. Patent dural venous sinuses. 3. No arterial stenosis or occlusion within the major neck arteries. 4. Extensive dental caries and periodontal disease. Dictated by: Dictated on workstation # [id number]
[2022-03-18] MEDS ORDERED: ASPIRIN 325 MG (5 GR) TABLET PO ONE (15:15)
[2022-03-18] MEDS ORDERED: TETRACAINE 0.5% OPHTH SOLN 4 ML BTL (SINGLE DOSE ONLY) OP ONE (15:30)
[2022-03-18 16:05] VITALS: BP 119/102
== END 2022-03-18 16:05 | disposition home or self-care (01) ==
LOC: EDUNIT# 12:15 → ER 12:16
DX: G45.9 Transient cerebral ischemic attack, unspecified (principal); R29.702 NIHSS score 2; F17.200 Nicotine dependence, unspecified, uncomplicated
CPT/HCPCS: 36415; 70450; 70496; 70498; 71045; 80053; 81000; 82947; 84484; 85025; 85379; 85610; 85652; 85730; 86141; 93005; 93041

== ENCOUNTER 2022-04-02 14:37 | Emergency (ER) | payer OTHER ==
[~2022-04-02] VITALS: Ht 178 cm; Wt 172.3 kg
--- NOTE | 2022-04-02 15:07 | ED Neurological Problem ---
General Chief Complaint: Neuro-Stroke Like Symptoms Stated Complaint: BLURRED VISION - HEADACHE - SLURRED SPEECH Nursing Triage Note: PT STATES THAT HE HAD A TIA ON MARCH 18 AND IS HAVING THE SAME S/S TODAY. BLURRED VISION, SENSIVITY TO LIGHT AND TOUCH, RT FACIAL DROOPING THAT HAS RESOLVED AND FEELS HEAVY HEADED. Source: patient Exam Limitations: no limitations History of Present Illness Date Seen by Provider: Apr 02, 2022 Time Seen by Provider: 15:02 Initial Comments Patient is a 51-year-old male who presents to with strokelike symptoms. Symptoms started around 1230 today while sitting at his desk. States he started having blurry vision bilateral. He states anything close to his screen was hard to see. He was sitting at his desk at the time. Anything further than 1520 feet he is able to visualize. Started feeling some head heaviness. According to she noted slurred speech and right-sided facial weakness and drooling. She states symptoms have improved. Patient states he felt somewhat dizzy at the time. He states the blurry vision has improved. Denies of any unilateral muscle weakness or's or sensory changes. He reports similar symptoms on March 18 was seen here diagnosed with TIA. Reports nausea without vomiting, diarrhea, chest pain, shortness of breath, fever, chills. Denies history of hypertension, diabetes, high cholesterol. Does have a history of smoking family history of stroke and heart disease Allergies and Home Medications Allergies Coded Allergies: Adelia Known Allergies (Verified Allergy, Unknown, 05/30/06) Patient Home Medication List Home Medication List Reviewed: Yes Hydrocodone Bit/Acetaminophen (Lortab 5 Mg Tablet) 1 Tab Tab, 1-2 EACH PO Q6H PRN for BREAKTHROUGH PAIN Prescribed by: SUKI GALLAGHER on 05/03/18 1017 Levofloxacin (Levaquin) 500 Mg Tablet, 500 MG PO DAILY Prescribed by: SUKI GALLAGHER on 05/03/18 1017 Ondansetron (Ondansetron Odt) 4 Mg Tab.rapdis, 4 MG PO Q6H PRN for NAUSEA/VOMITING Prescribed by: SUKI GALLAGHER on 05/03/18 1017 Tramadol Hcl (Tramadol Hcl) 50 Mg Tablet, 50 MG PO Q4H PRN Prescribed by: MARCIN ROTHMAN on 07/22/13 0887 Review of Systems Review of Systems Constitutional: No chills, No diaphoresis, No malaise, No weakness Eyes: Blurred Vision; Denies Drainage, Denies Decreased Acuity Ears, Nose, Mouth, Throat: denies ear pain, denies ear discharge Respiratory: No cough, No dyspnea on exertion Cardiovascular: No chest pain, No edema Gastrointestinal: No abdominal pain, No diarrhea, No nausea, No vomiting Genitourinary: No decreased output, No discharge Musculoskeletal: No back pain, No joint pain Psychiatric/Neurological: Headache All Other Systems Reviewed Negative Unless Noted: Yes Past Waztruu-Vginyv-Nredrb Hx Immunizations Up To Date First/Initial COVID19 Vaccinat: 10/15/21 Second COVID19 Vaccination Joey: 11/05/21 Past Medical History Surgeries: Yes Gallbladder, Orthopedic, Vasectomy Respiratory: No Cardiac: No Neurological: No Reproductive Disorders: No Sexually Transmitted Disease: No HIV/AIDS: No Gastrointestinal: No Musculoskeletal: No Endocrine: No Cancer: No Psychosocial: No Integumentary: No Blood Disorders: No Adverse Reaction/Blood Tranf: No Family Medical History No Pertinent Family Hx Physical Exam Vital Signs Vital Signs - First Documented 04/02/22 14:47 Temp 36.6 Pulse 88 Resp 15 B/P (MAP) 137/85 (102) Pulse Ox 97 O2 Delivery Room Air Capillary Refill : Less Than 3 Seconds Height, Weight, BMI Height: 5'10.00" Weight: 382lbs. oz. 173.025995ro; 54.00 BMI Method:Stated General Appearance: WD/WN, no apparent distress HEENT: PERRL/EOMI, normal ENT inspection, TMs normal, pharynx normal Neck: non-tender, full range of motion, supple, normal inspection Respiratory: chest non-tender, lungs clear, normal breath sounds, no respiratory distress, no accessory muscle use Cardiovascular: regular rate, rhythm, no edema, no gallop, no JVD Gastrointestinal: normal bowel sounds, non tender, soft, no organomegaly Back: normal inspection, no CVA tenderness, no vertebral tenderness Extremities: normal range of motion, non-tender, normal inspection, no pedal edema Neurologic/Psychiatric: sr. merchandise planner II-XII nml as tested, no motor/sensory deficits, alert, normal mood/affect, oriented x 3 Crainal Nerves: normal hearing, normal speech, PERRL Motor/Sensory: no motor deficit, no sensory deficit Skin: normal color, warm/dry Stroke Onset of Symptoms Date of Onset of Symptoms: Apr 02, 2022 Onset of Symptoms: Yes NIH Stroke Scale Assessment Select: Initial Level of Consciousness: 0=Alert (0), Level of Consciousness- Questions: 0=Answers both month/age (0), LOC Commands: 0=Performs both tasks (0), Gaze: Normal (0), Visual Hernandez: 0=No visual loss (0), Facial Movement (Facial Paresis): 0=Normal symmetrical mnt (0), Motor Function-Arms Right: 0=No drift (0), Motor Function-Arms Left: 0=No drift (0), Motor Function-Legs Right: 0=No drift (0), Motor Function-Legs Left: 0=No drift (0), Limb Ataxia: 0=Absent (0), Sensory: 0=Normal:no loss (0), Best Language: 0=No aphasia (0), Dysarthria: 0=Normal (0), Total: 0 Progress/Results/Core Measures Results/Orders Lab Results Laboratory Tests Test 04/02/22 14:48 Range/Units White Blood Count 8.6 4.3-11.0 10^3/uL Red Blood Count 4.60 4.30-5.52 10^6/uL Hemoglobin 14.5 13.3-17.7 g/dL Hematocrit 43 40-54 % Mean Corpuscular Volume 93 80-99 fL Mean Corpuscular Hemoglobin 32 25-34 pg Mean Corpuscular Hemoglobin Concent 34 32-36 g/dL Red Cell Distribution Width 14.0 10.0-14.5 % Platelet Count 272 130-400 10^3/uL Mean Platelet Volume 10.0 9.0-12.2 fL Immature Granulocyte % (Auto) 0 % Neutrophils (%) (Auto) 62 42-75 % Lymphocytes (%) (Auto) 27 12-44 % Monocytes (%) (Auto) 6 0-12 % Eosinophils (%) (Auto) 4 0-10 % Basophils (%) (Auto) 1 0-10 % Neutrophils # (Auto) 5.3 1.8-7.8 10^3/uL Lymphocytes # (Auto) 2.3 1.0-4.0 10^3/uL Monocytes # (Auto) 0.5 0.0-1.0 10^3/uL Eosinophils # (Auto) 0.3 0.0-0.3 10^3/uL Basophils # (Auto) 0.1 0.0-0.1 10^3/uL Immature Granulocyte # (Auto) 0.0 0.0-0.1 10^3/uL Prothrombin Time 12.5 12.2-14.7 SEC INR Comment 0.9 0.8-1.4 Activated Partial Thromboplast Time 32 24-35 SEC Sodium Level 137 135-145 MMOL/L Potassium Level 3.9 3.6-5.0 MMOL/L Chloride Level 104 98-107 MMOL/L Carbon Dioxide Level 27 21-32 MMOL/L Anion Gap 6 5-14 MMOL/L Blood Urea Nitrogen 11 7-18 MG/DL Creatinine 1.03 0.60-1.30 MG/DL Estimat Glomerular Filtration Rate 87 BUN/Creatinine Ratio 11 Glucose Level 122 H 70-105 MG/DL Calcium Level 8.9 8.5-10.1 MG/DL Corrected Calcium 9.1 8.5-10.1 MG/DL Total Bilirubin 0.5 0.1-1.0 MG/DL Aspartate Amino Transf (AST/SGOT) 16 5-34 U/L Alanine Aminotransferase (ALT/SGPT) 19 0-55 U/L Alkaline Phosphatase 101 40-136 U/L Troponin I < 0.028 <0.028 NG/ML Total Protein 6.8 6.4-8.2 GM/DL Albumin 3.8 3.2-4.5 GM/DL My Orders Orders - ALICIA MEDELLIN PA Cbc With Automated Diff (04/02/22 15:00) Protime With Inr (04/02/22 15:00) Partial Thromboplastin Time (04/02/22 15:00) Comprehensive Metabolic Panel (04/02/22 15:00) Troponin I Derek (04/02/22 15:00) Chest 1 View, Ap/Pa Only (04/02/22 15:00) Accucheck Stat ONCE (04/02/22 15:00) Ed Iv/Invasive Line Start (04/02/22 15:00) Vital Signs Stroke Patient Q15M (04/02/22 15:00) Ct Head Wo-R/O Stroke (04/02/22 15:00) O2 (04/02/22 15:00) Monitor-Rhythm Ecg Trace Only (04/02/22 15:00) Dysphagia Screening Tool Q10MX1 (04/02/22 15:00) Ekg Tracing (04/02/22 14:49) Vital Signs/I&O 04/02/22 04/02/22 14:47 16:23 Temp 36.6 Pulse 88 83 Resp 15 18 B/P (MAP) 137/85 (102) 145/91 Pulse Ox 97 95 O2 Delivery Room Air Room Air Blood Pressure Mean: 102 Comment Sinus rhythm, low QRS voltage in pericardial leads, 83 bpm, QRS duration 94 MS, QTC 400 MS Departure Communication (PCP) Patient states he was at his computer screen at 1230 acute onset of blurry visi on. Subjective right-sided facial droop and slurring words by . On arrival he is currently asymptomatic. NIH was 0. Patient was seen here on 18 March with worsening symptoms. Patient CT scan head today was unremarkable CT head, CT angio head and neck. Patient has no history of strokes concern for TIA on the . [facility] Patient without history of hypertension, diabetes, high cholesterol. History of smoking. Patient was normal blood pressure. Did have a headache at the time of the visual changes. Almost appear to be some sort of aura that is causing the blurry vision, as patient was looking at screen at that time as well as the 18 of March, No focal neural deficits at this time such as unilateral weakness or sensory changes, unilateral visual loss, facial droop on exam. Appropriate strength. No evidence of aphasia or dysarthria. Patient lab work was otherwise unremarkable here. Discussed patient with Dr. Fields neurologist at [facility]. Patient can recall his episode. He states he was not altered during that time. Possible TIA but without the focal and unilateral changes may be some other etiology. He is scheduled to follow-up with ophthalmology as well. Neurologist recommended adding Plavix for 3 weeks 75 mg daily and a statin atorvastatin 40 mg daily. Recommended outpatient MRI and echo. Patient refused the medication. Discussed the importance of MRI and echo and continue monitoring blood pressure. Discussed with patient if this is some form of TIA that this may lead into a bigger event and will need further medical management. Return precautions were discussed with the patient. He states he feels great to go home. If any worsening symptoms return back to ED for further evaluation Impression Primary Impression: Visual changes Disposition: 01 HOME, SELF-CARE Condition: Stable Departure-Patient Inst. Decision time for Depature: 15:58 Referrals: NO,LOCAL PHYSICIAN (PCP/Family) Primary Care Physician Patient Instructions: Transient Ischemic Attack (DC) Add. Discharge Instructions: [facility] If any worsening symptoms return back to ED for further evaluation All discharge instructions reviewed with patient and/or family. Voiced understanding. Work/School Note: Work Release Form Date Seen in the Emergency Department: Apr 02, 2022 Return to Work: Apr 03, 2022 ALICIA MEDELLIN Apr 02, 2022 15:06
[2022-04-02 15:08] LABS: BASOPHILS # (AUTO) 0.1 10^3/uL (0.0-0.1); BASOPHILS % (AUTO) 1 % (0-10); EOSINOPHILS # (AUTO) 0.3 10^3/uL (0.0-0.3); EOSINOPHILS % (AUTO) 4 % (0-10); HEMATOCRIT 43 % (40-54); HEMOGLOBIN 14.5 g/dL (13.3-17.7); LYMPHOCYTES # (AUTO) 2.3 10^3/uL (1.0-4.0); LYMPHOCYTES % (AUTO) 27 % (12-44); MEAN CORPUSCULAR HEMOGLOBIN 32 pg (25-34); MEAN CORPUSCULAR HGB CONC 34 g/dL (32-36); MEAN CORPUSCULAR VOLUME 93 fL (80-99); MONOCYTES # (AUTO) 0.5 10^3/uL (0.0-1.0); MONOCYTES % (AUTO) 6 % (0-12); NEUTROPHILS # (AUTO) 5.3 10^3/uL (1.8-7.8); NEUTROPHILS % (AUTO) 62 % (42-75); PLATELET COUNT 272 10^3/uL (130-400); WHITE BLOOD COUNT 8.6 10^3/uL (4.3-11.0)
[2022-04-02 15:14] LABS: INR 0.9 (0.8-1.4); PROTHROMBIN TIME PATIENT 12.5 SEC (12.2-14.7)
[2022-04-02 15:20] LABS: ALANINE AMINOTRANSFERASE 19 U/L (0-55); ALBUMIN 3.8 GM/DL (3.2-4.5); ALKALINE PHOSPHATASE 101 U/L (40-136); BILIRUBIN,TOTAL 0.5 MG/DL (0.1-1.0); BUN/CREATININE RATIO 11; CALCIUM 8.9 MG/DL (8.5-10.1); CARBON DIOXIDE 27 MMOL/L (21-32); CHLORIDE 104 MMOL/L (98-107); CREATININE SERUM 1.03 MG/DL (0.60-1.30); GFR ESTIMATED 87; GLUCOSE 122 MG/DL (70-105); POTASSIUM 3.9 MMOL/L (3.6-5.0); SODIUM 137 MMOL/L (135-145); TOTAL PROTEIN 6.8 GM/DL (6.4-8.2)
--- NOTE | 2022-04-02 15:39 | Diagnostic Imaging Report ---
INDICATION: Stroke symptoms, chest pain. Frontal chest obtained at 3:32 p.m. and compared to 03/18/2022. FINDINGS: Heart and mediastinal silhouette are normal in appearance. The lungs are clear. There is no pneumothorax or pleural fluid. IMPRESSION: Negative chest. Dictated by: Dictated on workstation # [id number]
--- NOTE | 2022-04-02 15:39 | Diagnostic Imaging Report ---
CLINICAL INDICATION: Patient with dizziness and blurred vision. Patient with TIA of December 2021. EXAM: Axial CT scan of the brain performed without IV contrast. High-resolution axial CT brain images with sagittal and coronal reformations were also created. Auto Exposure Controls were utilized during the CT exam to meet ALARA standards for radiation dose reduction. COMPARISON: Head CT and CT angiogram of head/neck dated 03/18/2022. FINDINGS: There is no evidence of acute cerebral infarct, intracranial hemorrhage, or gross mass effect. The brain parenchymal volume appears appropriate for patient's age. There is normal shahid-white matter distinction. There is no significant midline shift or herniation. There is no evidence of hydrocephalus. The basal cisterns are unremarkable. The skull, extracranial soft tissue, and orbits are unremarkable. There is minimal mucosal thickening involving the ethmoid sinus and left maxillary sinus. Temporal bones show no significant abnormality. IMPRESSION: Stable CT scan of the brain with no CT evidence of acute intracranial process. There is no dense vessel sign. Results of this report were discussed with ELIJAH Dominguez, via the telephone on 04/02/2022 at 1536 hours. Dictated by: Dictated on workstation # [id number]
[2022-04-02 16:23] VITALS: BP 145/91
== END 2022-04-02 16:08 | disposition home or self-care (01) ==
LOC: EDUNIT# 14:37 → ER 14:39
DX: H53.8 Other visual disturbances (principal); R29.810 Facial weakness; R29.700 NIHSS score 0; Z86.73 Personal history of transient ischemic attack (TIA), and cerebral infarction without residual deficits
CPT/HCPCS: 36415; 70450; 71045; 80053; 84484; 85025; 85610; 85730; 93005; 93041